=== PATIENT | male | born 1955 ===

== ENCOUNTER → 2017-01-19 | Outpatient (CLI) | payer MEDICARE ==
[~2017-01-19] MED LIST: ADVIL200 MG PO; ASPIRIN (CHILDR81 MG PO; BRILINTA90 MG PO; CLARITIN-D 121 EACH PO; LIPITOR80 MG PO; PROVENTIL OR V6.7 GM INH; VASOTEC2.5 MG PO
[2017-01-19 11:58] LABS: BASOPHIL # 0.1 K/uL (0.0-0.2); BASOPHIL % 1.5 %; EOSINOPHIL # 0.6 K/uL (0.0-0.5); EOSINOPHIL % 8.2 %; HEMOGLOBIN 15.1 g/dL (12.0-17.0); IMMATURE GRANULOCYTE # 0.1 K/uL (0.0-0.3); IMMATURE GRANULOCYTE % 0.8 %; LYMPHOCYTE # 1.8 K/uL (0.8-4.0); LYMPHOCYTE % 23.7 %; MCH 31.8 pg (27.0-34.0); MCHC 33.6 gm/dL (32.0-36.5); MCV 94.7 fl (83.0-98.0); MONOCYTE # 0.6 K/uL (0.0-1.0); MONOCYTE % 8.1 %; MPV 10.1 fl (9.4-12.4); NEUTROPHIL # (ANC) 4.3 K/uL (1.4-9.0); NEUTROPHIL % 57.7 %; NRBC % 0 /100WBC (0-0.00); PLATELET COUNT 210 K/uL (150-450); RBC 4.75 M/uL (4.00-6.00); RDW-CV 13.4 % (11.9-14.6); WBC 7.5 K/uL (4.0-11.0)
[2017-01-19 12:08] LABS: ALBUMIN 3.9 gm/dL (3.5-5.0); ANION GAP 12.7 (10.0-19.0); BLOOD UREA NITROGEN 11 mg/dL (6-24); CALCIUM 8.7 mg/dL (8.5-10.5); CHLORIDE 108 mMol/L (96-110); CO2 24 mMol/L (22-32); CREATININE 1.1 mg/dL (0.6-1.3); ESTIMATED GFR (MDRD EQUATION) > 60; PHOSPHORUS 2.1 mg/dL (2.5-4.9); POTASSIUM 3.7 mMol/L (3.7-5.1); SODIUM 141 mMol/L (135-145)
== END | disposition disaster alternative care site (69) ==
LOC: LCNC 11:32
PROVIDERS: Internal Medicine Interventional Cardiology
DX: R94.39 Abnormal result of other cardiovascular function study (principal)

== ENCOUNTER 2017-01-26 05:59 | Outpatient (CLI) | payer MEDICARE, SELFPAY ==
[~2017-01-26] VITALS: Ht 182.9 cm; Wt 90.6 kg
--- NOTE | ~2017-01-26 | CATH ---
Cardiac Diagnostic + PCI Report Demographics Patient Name KAYLA Bronson Gender Male Date of 1955 Age 61 year(s) Patient Number [id number] Date of Study 01/26/2017 Visit Number [id number] Room Number G6[address] [place] [id number] Ht 182.88 cm Wt 90.6 kg Referring Elvis Acuna Primary Physician Physician Performing Aleja Singh MD Secondary Physician Physician Diagnostic Aleja Singh MD Assisting Physician Physician Interventional Aleja Singh MD Physician Community [facility] Representative Physician Findings and Conclusions Diagnostic Findings and Conclusion Three vessel coronary artery disease. Patent stent to LAD, patent ALLAN to RCA. Diagnostic Recommendations PCI LCx. Interventional Findings and Conclusion Successful bare metal stent to LCx. 0.014, 2.75 x 20 Emerge. 2.75 x 24 Rebel post-dilated to 3.1. Interventional Recommendations Dual anti-platelet therapy for four weeks. Routine post-Angioseal care. Procedure Description The patient was brought to the diagnostic cardiac catheterization-EP laboratory in the fasting, non-sedated state. Informed consent was obtained in the written and verbal form after the risks and benefits were explained. The patient had no further questions and agreed to proceed. The planned puncture-incision site(s) were shaved and prepped with ChloraPrep and draped in the usual sterile manner. Conscious sedation, supplemental oxygen, and pain control medications were delivered by a registered nurse under physician guidance. Surface ECG rhythm, blood pressure measurement, and pulse oximetry were monitored throughout the procedure. Arterial access. The access site was infiltrated with lidocaine. The vessel was entered with the Seldinger technique. A sheath was advanced into the vessel and used for catheter placement. Selective left coronary angiography. A catheter was advanced into the left coronary vessel ostium under Fluoroscopic guidance. Contrast was injected by hand. Images were obtained in multiple projections. Selective right coronary angiography. A catheter was advanced into the right coronary vessel ostium under fluoroscopic guidance. Contrast was injected by hand. Images were obtained in multiple projections. Selective ALLAN graft angiography. A catheter was advanced into the right internal mammary graft ostium under fluoroscopic guidance. Contrast was injected by hand. Images were obtained in multiple projections. Left heart catheterization. A catheter was advanced across the aortic valve to the left ventricle under fluoroscopic guidance. Resting hemodynamics were obtained. Angioplasty and Stent Placement: A guiding catheter was used to intubate the vessel. A 0.14 wire was then used to cross the lesion. A balloon catheter was placed across the lesion and inflated. The balloon catheter was then removed. A Bare Metal Stent was placed and inflated. Post placement angiograms were performed. Arterial artery hemostasis. Hemostasis was achieved. The patient was transferred to a regular nursing floor via cart accompanied by a nurse. The patient left the laboratory in stable condition. Diagnostic Cath Status: Elective Interventional Cath Status: Elective Procedure Procedure Type Diagnostic procedure:Angiography:, Coronary Angios w/Grafts, [facility] PCI procedure:Bare Metal Coronary Stent:, CFX Indications: Abnormal Stress Test. The procedure was explained in detail to the patient. Risks, complications and alternative treatments were reviewed. Written consent was obtained. Medications Reviewed with Patient prior to Procedure. Angiographic Findings Dominance: Right Cardiac Arteries and Lesion Findings LMCA: Large, calcified. Distal eccentric 40-50%. Lesion on LMCA: Distal subsection.50% stenosis . LAD: Medium. Patent stents. Diag 1 medium, ok.There is a previous stent on Mid LAD Mid subsection showing wide patency. LCx: Large, non-dominant. OM 1 small, ok. Lesion on Mid CX: Mid subsection.90% stenosis 24 mm length reduced to 0%. Pre procedure JANICE II flow was noted. Post Procedure JANICE III flow was present. The guidewire cross was successful.The lesion was diagnosed as a moderate risk lesion.Culprit lesion. Devices used - Prowater Wire .014 x 180. Number of passes: 1. - Emerge Balloon 2.75 x 20. 1 inflation(s) to a max pressure of: 6 deirdre. - 2.75 x 24 Rebel Stent. 2 inflation(s) to a max pressure of: 17 deirdre. RCA: Resighini RCA small, ok. Lesion on Prox RCA: Proximal subsection.100% stenosis .Chronic total occlusion. Cardiac Grafts - There is a ALLAN graft that originates at the ALLAN and attaches to the Prox RCA. Coronary Tree Procedure Data Procedure Date Date: 01/26/2017Start: 08:07 AMEnd: 09:04 AM Entry Locations - Antegrade Percutaneous access was performed through the Right Femoral artery (Primary location). A 6 Fr sheath was inserted. Hemostasis was successfully obtained using Angio-Seal STS PLUS ([place]). Closure Comments: Deployed by [employer] Procedure Medications Order and Administration + + + + + !Time !Medication !Dosage !Route ! + + + + + !01/26/2017 08:25 !Angiomax (Bivalirudin) !67.5 mg !I.V. bolus ! !AM !(ACC_5) ! ! ! + + + + + !01/26/2017 08:26 !Angiomax (Bivalirudin) !1.75 mg/kg/hr!I.V. drip ! !AM !(ACC_5) ! ! ! + + + + + !01/26/2017 08:27 !Versed !1 mg !I.V. ! !AM ! ! ! ! + + + + + !01/26/2017 08:41 !Nipride !50 mcg !I.C. ! !AM ! ! ! ! + + + + + !01/26/2017 08:47 !Angiomax (Bivalirudin) ! !I.V. drip ! !AM !(ACC_5) ! ! ! + + + + + !01/26/2017 08:47 !Fentanyl !50 mcg !I.V. ! !AM ! ! ! ! + + + + + !01/26/2017 08:48 !Brilinta (Ticagrelor) !180 mg !P.O. ! !AM !(ACC_20) ! ! ! + + + + + Devices Used - A6 Fr. BS JL 4 Diag. Catheterwas used for:Left coronary angiography. - A6 Fr. BS JR 4 Diag. Catheterwas used for:Right coronary angiography. - A6 Fr. BS IMT Diag. Catheterwas used for:ALLAN. - A6 Fr. BS Angled Pigtail Diag. Catheterwas used for:LV Pressures. - A6 Fr. XB 3.5 Guide Catheterwas used for:Circumflex Intervention. Contrast Material - Isovue [id number] ml Fluoroscopy Time: Diagnostic: 14:00 minutes. Total: 14:00 minutes. Fluoroscopy Dose: Diagnostic: 1838 mGy. Total: 1838 mGy. Estimated Blood Loss: 4 ml. Medical History Allergies - No known allergies. Risk Factors The patient risk factors include:prior PCI;prior CABG;hypercholesterolemia, hypertension, last creatinine: 1.1 mg/dl, creatinine clearance: 92.66 ml/min, dyslipidemia, former tobacco use, prior heart failure and prior HI . Admission Data Admission Date: 01/26/2017 Admission Time: 05:59 AM Admit Source: Other Insurance Payors: Medicare. Admission Medications + +------+-------+ + + + + !Medication!Dosage!Times !Last !Last !Administered !Comments ! ! ! !Per Day!Delivery !Delivery ! ! ! ! ! ! !Date !Time ! ! ! + +------+-------+ + + + + !Aspirin ! ! ! ! ! ! ! !(any) ! ! ! ! ! ! ! + +------+-------+ + + + + Clinical Evaluation Leading to Procedure - The patient's CAD presentation was assessed as: Stable angina. - The patient's anginal syndrome during the past two weeks was assessed as: Class II according to the [place] Cardiovascular Society Classification System (CCS). - The reason for the patient's pathology laboratory technologist visit is pre-operative evaluation before non-cardiac surgery. Hemodynamics Condition: Rest O2 Consumption: Estimated: 241.68Heart Rate: 59 bpm Pressures (mmHg) +-----+ + !Site !Pressure ! +-----+ + !AO !152/105 (122) ! +-----+ + !LV !144/3 ,18 ! +-----+ + !LV !148/3 ,18 ! +-----+ + !AO !159/88 (118) ! +-----+ + !LV !172/6 ,18 ! +-----+ + !AO !158/87 (115) ! +-----+ + Valve Gradients and Areas + +---------+---------+---------+ +---------+ + !Valve !Peak !Mean !Area !Index !Flow !Source ! + +---------+---------+---------+ +---------+ + !Aortic !15 !15 ! ! ! ! ! + +---------+---------+---------+ +---------+ + !Aortic !15 !15 ! ! ! ! ! + +---------+---------+---------+ +---------+ + Shunts Oxygen Values O2 Capacity 205.36 O2 Consumption 241.68 Signatures dtt: Francisco Masterson (cardio) dtd: 01/26/17 0807 Physician Self Edit
[~2017-01-26 05:59] MED LIST changes: -ASPIRIN (CHILDR81 MG PO; -BRILINTA90 MG PO; -LIPITOR80 MG PO; -VASOTEC2.5 MG PO
[2017-01-27 04:49] LABS: BASOPHIL # 0.1 K/uL (0.0-0.2); EOSINOPHIL # 0.5 K/uL (0.0-0.5); EOSINOPHIL % 5.1 %; HEMATOCRIT 46.8 % (37.0-53.0); HEMOGLOBIN 15.9 g/dL (12.0-17.0); IMMATURE GRANULOCYTE # 0.1 K/uL (0.0-0.3); IMMATURE GRANULOCYTE % 0.8 %; LYMPHOCYTE # 1.5 K/uL (0.8-4.0); LYMPHOCYTE % 16.6 %; MCH 31.6 pg (27.0-34.0); MONOCYTE # 0.6 K/uL (0.0-1.0); MONOCYTE % 6.3 %; MPV 9.8 fl (9.4-12.4); NEUTROPHIL # (ANC) 6.4 K/uL (1.4-9.0); NEUTROPHIL % 70.2 %; NRBC % 0 /100WBC (0-0.00); PLATELET COUNT 231 K/uL (150-450); RBC 5.03 M/uL (4.00-6.00); RDW-CV 13.3 % (11.9-14.6); WBC 9.2 K/uL (4.0-11.0)
[2017-01-27 05:10] LABS: ALK PHOS 63 IU/L (33-138); ALT 27 IU/L (12-78); ANION GAP 9.7 (10.0-19.0); AST 19 IU/L (10-40); BLOOD UREA NITROGEN 9 mg/dL (6-24); CALCIUM 8.5 mg/dL (8.5-10.5); CHLORIDE 108 mMol/L (96-110); CO2 28 mMol/L (22-32); ESTIMATED GFR (MDRD EQUATION) > 60; POTASSIUM 3.7 mMol/L (3.7-5.1); SODIUM 142 mMol/L (135-145); TOTAL BILIRUBIN 0.8 mg/dL (0.0-1.5)
[2017-01-27] MEDS ORDERED: ASPIRIN (CHILDR81 MG PO (09:48)
[2017-01-27] MEDS ORDERED: VASOTEC2.5 MG PO (09:49)
[2017-01-27] MEDS ORDERED: LIPITOR80 MG PO (09:49)
[2017-01-27] MEDS ORDERED: BRILINTA90 MG PO (09:51)
== END 2017-01-27 16:00 | disposition disaster alternative care site (69) ==
LOC: GPCU 05:59 → GCAT 05:59 → GPOC 06:00 → GPCU 08:40 → GPOC 09:00 → GCAT 01-27 16:00
PROVIDERS: Internal Medicine Interventional Cardiology
DX: I25.10 Atherosclerotic heart disease of native coronary artery without angina pectoris (principal); I25.82 Chronic total occlusion of coronary artery; I10 Essential (primary) hypertension; E78.5 Hyperlipidemia, unspecified; I25.2 Old myocardial infarction; K46.9 Unspecified abdominal hernia without obstruction or gangrene; Z95.1 Presence of aortocoronary bypass graft; Z95.5 Presence of coronary angioplasty implant and graft; Z87.891 Personal history of nicotine dependence
CPT/HCPCS: C1725; C1760; C1769; C1876; C1887; J0583; J1644; J2001; J2250; J3010; J7030; J7050; J7060

== ENCOUNTER → 2017-02-09 | Outpatient (CLI) | payer MEDICARE ==
[~2017-02-09] MED LIST changes: +ASPIRIN (CHILDR81 MG PO; +BRILINTA90 MG PO; +LIPITOR80 MG PO; +VASOTEC2.5 MG PO
[2017-02-09 13:49] LABS: BASOPHIL # 0.1 K/uL (0.0-0.2); BASOPHIL % 0.8 %; EOSINOPHIL # 0.6 K/uL (0.0-0.5); EOSINOPHIL % 5.8 %; HEMATOCRIT 44.6 % (37.0-53.0); HEMOGLOBIN 14.7 g/dL (12.0-17.0); IMMATURE GRANULOCYTE # 0.1 K/uL (0.0-0.3); IMMATURE GRANULOCYTE % 0.8 %; LYMPHOCYTE # 1.7 K/uL (0.8-4.0); LYMPHOCYTE % 16.4 %; MCH 31.2 pg (27.0-34.0); MCV 94.7 fl (83.0-98.0); MONOCYTE # 0.7 K/uL (0.0-1.0); MONOCYTE % 6.6 %; MPV 10.2 fl (9.4-12.4); NEUTROPHIL # (ANC) 7.3 K/uL (1.4-9.0); NEUTROPHIL % 69.6 %; NRBC % 0 /100WBC (0-0.00); PLATELET COUNT 253 K/uL (150-450); RBC 4.71 M/uL (4.00-6.00); RDW-CV 13.1 % (11.9-14.6); WBC 10.5 K/uL (4.0-11.0)
[2017-02-09 13:59] LABS: ALBUMIN 3.8 gm/dL (3.5-5.0); ANION GAP 13.9 (10.0-19.0); BLOOD UREA NITROGEN 10 mg/dL (6-24); CHLORIDE 108 mMol/L (96-110); CO2 24 mMol/L (22-32); ESTIMATED GFR (MDRD EQUATION) > 60; PHOSPHORUS 2.9 mg/dL (2.5-4.9); POTASSIUM 3.9 mMol/L (3.7-5.1); SODIUM 142 mMol/L (135-145)
== END | disposition disaster alternative care site (69) ==
LOC: LCNC 13:36
PROVIDERS: Internal Medicine Interventional Cardiology
DX: I25.118 Atherosclerotic heart disease of native coronary artery with other forms of angina pectoris (principal)